=== PATIENT | male | born 1950 | race Caucasian/White ===

== ENCOUNTER 2017-11-26 19:02 | Emergency (ER) | payer BC ==
[2017-11-26 19:53] VITALS: BP 128/89
--- NOTE | 2017-11-26 20:18 | UC ---
Lower Extremity/Ankle HPI - HPI Summary HPI Summary: 67 y/o female presents to the urgent care c/o left middle finger nail bed infected w/ redness and swelling for the past 3 days. Pt reports he likes to bite on his nails. He had a similar infection 3 years ago. He has soaked his finger on Epson salt w/o any improvement. Pain 3/10 throbbing an pressure. Pt denies fever, numbness and tingling sensation over the finger, SOB, chest pain, abdominal pain, N/V/D - History of Current Complaint Chief Complaint: UCUpperExtremity Stated Complaint: INFECTED FINGER Time Seen by Provider: 11/26/17 20:05 Hx Obtained From: Patient Onset/Duration: Gradual Onset, Lasting Days - 3 days, Still Present, Worse Since - today Severity Initially: Mild Severity Currently: Moderate Pain Intensity: 3 Pain Scale Used: 0-10 Numeric Aggravating Factor(s): Other - touch Alleviating Factor(s): Rest Able to Bear Weight: Yes Related History: Other - Pt is RT hand dominant - Allergies/Home Medications Allergies/Adverse Reactions: Allergies Allergy/AdvReac Type Severity Reaction Status Date / Time No Known Allergies Allergy Verified 11/26/17 19:52 Home Medications: Home Medications Ibuprofen TAB* [Advil TAB*] 400 mg PO DAILY 11/26/17 [History Confirmed 11/26/17 ] PMH/Surg Hx/FS Hx/Imm Hx Previously Healthy: Yes Endocrine History: Dyslipidemia Cardiovascular History: Hypertension - Surgical History Surgical History: None - Family History Known Family History: Positive: Hypertension - Social History Occupation: Employed Full-time Lives: With Family Alcohol Use: None Substance Use Type: None Smoking Status (MU): Never Smoked Tobacco Review of Systems Constitutional: Negative Skin: Other - infected left middle finger w/ pus around nailbed Eyes: Negative ENT: Negative Respiratory: Negative Cardiovascular: Negative Gastrointestinal: Negative Genitourinary: Negative Motor: Negative Neurovascular: Negative Musculoskeletal: Other: - RT middle finger pain Neurological: Negative Psychological: Negative Is Patient Immunocompromised?: No All Other Systems Reviewed And Are Negative: Yes Physical Exam - Summary Physical Exam Summary: Vital Signs Reviewed: Yes General: well developed, well nourished male sitting in the examining table w/o any apparent distress Eye Exam: Normal Eyes: Positive: Conjunctiva Clear - PERRLA, EOMI, fundi grossly normal ENT: Positive: Normal ENT inspection, Hearing grossly normal, Pharynx normal, TMs normal Neck: Positive: Supple, Nontender, No Lymphadenopathy Respiratory: Positive: Chest non-tender, Lungs clear, Normal breath sounds, No respiratory distress Cardiovascular: Positive: RRR, No Murmur, Pulses Normal, Brisk Capillary Refill Abdomen Description: Positive: Nontender, No Organomegaly, Soft. Negative: CVA Tenderness (R), CVA Tenderness (L) Bowel Sounds: Positive: Present Musculoskeletal: Positive: Strength Intact, ROM Intact, No Edema Neurological: Positive: Alert, Muscle Tone Normal Psychological Exam: Normal Skin: Positive: LF # 3 phalanx near DIPJ and medial side of nail bed w/ a small erythematous pustule that is indurated and fluctuant, tender to palpation, swollen, and warm to touch . FROM of phalanx, sensation is intact, capillary refill WNL, reflexes WNL Triage Information Reviewed: Yes Vital Signs: Initial Vital Signs Temp 97.9 F 11/26/17 19:49 Pulse 70 11/26/17 19:49 Resp 16 11/26/17 19:49 BP 128/89 11/26/17 19:49 Pulse Ox 96 11/26/17 19:49 Lower Extremity Course/Dx - Course Course Of Treatment: 67 y/o female presents to the urgent care c/o left middle finger nail bed infected w/ redness and swelling for the past 3 days. Pt reports he likes to bite on his nails. He had a similar infection 3 years ago. He has soaked his finger on Epson salt w/o any improvement. Pain 3/10 throbbing an pressure. Pt denies fever, numbness and tingling sensation over the finger, SOB, chest pain, abdominal pain, N/V/D. Hx obtained. Pt w/ a paronychia on the left 3rd phalanx on examination. I&D of paronychia procedure:The procedure was explained and consent obtained. [place] protocol performed. Digital block performed at base of of left 3rd phalanx w/ 2 mL of [place] 1% with good anesthesia. Sterile drape and prep were done. The fluctuant center around nail was incised with #11 blade scalpel. A small amount of caseous material was expressed . wound cultures obtained and sent to lab to r/o MRSA. wound was irrigated with normal saline. Bacitracin topical ointment applied and wound covered with sterile dressing. The patient tolerated the procedure well. Pt Rx Keflex PO and ibuprofen PO for pain. Pt advised fever develops and pain increase despite ABX to go immediately to the ER for further management. D/C instructions explained. Pt understood and agreed with D/C instructions. Left the clinic ambulating A&OX3. No Hx of MRSA. Pt Rx Keflex PO and Bacitracin oint advised to soak foot on warm water w/ [place] as directed below. First dose of ABX given at the clinic tonight since pharmacy is closed. Advised to take Motrin for pain and swelling. D/C instructions explained. Father and Pt advised if not improvement of symptoms to return to the urgent care or Medical Supervisor for further management. Father and PT understood and agreed w/ plan of care. - Differential Dx/Diagnosis Differential Diagnosis/HQI/PQRI: Cellulitis, Infection, Other - [facility] Provider Diagnoses: 1- left 3rd phalanx paronychia Discharge - Sign-Out/Discharge Documenting (check all that apply): Discharge/Admit/Transfer - D/c home - Discharge Plan Condition: Stable Disposition: HOME Prescriptions: Aluminum Sulf/Ca Acetate HORACIO* [[place] HORACIO*] 1 applic TOPICAL BID #1 box Cephalexin CAP* [Keflex CAP*] 500 mg PO QID #27 cap Patient Education Materials: Paronychia (ED) Referrals: Lisa Sullivan MD [Primary Care Provider] - 3 Days Additional Instructions: 1-Please take full course of antibiotic to avoid resistance. Keep wound clean and dry with a sterile dressing. Apply bacitracin topical as directed. First dose of antibiotic given tonight. Soak your finger as directed 2-. Take Ibuprofen PO q6-8hrs prn for pain or swelling. 3-If you develop fever or redness despite antibiotic please return to the Urgent care or f/u w/ your PCP 5- Wound culture sent to lab, if any abnormal result you will receive a call from us. - Billing Disposition and Condition Condition: STABLE Disposition: HOME
[2017-11-26] MEDS ORDERED: Lidocaine 1% MPF* 2 ML VIAL INJ ONE (20:27)
[2017-11-26] MEDS ORDERED: Cephalexin CAP* 500 MG PO ONE (21:10)
--- NOTE | 2017-11-30 15:31 | UC ---
- Progress Note Progress Note: Final wound culture results back with 1) Staph lugdenesis - sens to keflex 2) Strep constellatus - sens to PCN, keflex not specifically tested, but keflex has good strep coverage 3) Citrobacter freundii - resistant to keflex, but sensitive to cipro Keep taking Keflex and start Cipro one tab BID for 1 week Discharge - Sign-Out/Discharge Documenting (check all that apply): Post-Discharge Follow Up - Discharge Plan Condition: Stable Disposition: HOME Prescriptions: Aluminum Sulf/Ca Acetate HORACIO* [[place] HORACIO*] 1 applic TOPICAL BID #1 box Cephalexin CAP* [Keflex CAP*] 500 mg PO QID #27 cap Ciprofloxacin TAB* [Cipro 500 MG TAB*] 500 mg PO BID #14 tab Patient Education Materials: Paronychia (ED) Referrals: Lisa Sullivan MD [Primary Care Provider] - 3 Days Additional Instructions: 1-Please take full course of antibiotic to avoid resistance. Keep wound clean and dry with a sterile dressing. Apply bacitracin topical as directed. First dose of antibiotic given tonight. Soak your finger as directed 2-. Take Ibuprofen PO q6-8hrs prn for pain or swelling. 3-If you develop fever or redness despite antibiotic please return to the Urgent care or f/u w/ your PCP 5- Wound culture sent to lab, if any abnormal result you will receive a call from us. - Billing Disposition and Condition Condition: STABLE Disposition: HOME
== END 2017-11-26 21:34 | disposition home or self-care (01) ==
LOC: UCEAST 19:02
DX: L03.012 Cellulitis of left finger (principal); B95.7 Other staphylococcus as the cause of diseases classified elsewhere; B95.4 Other streptococcus as the cause of diseases classified elsewhere; B96.89 Other specified bacterial agents as the cause of diseases classified elsewhere; Z16.11 Resistance to penicillins; Z16.19 Resistance to other specified beta lactam antibiotics; E78.5 Hyperlipidemia, unspecified; I10 Essential (primary) hypertension
CPT/HCPCS: 10060; 87070; 87077; 87186; 87205; 87640; 87641; 99202; A9270-GY; G0463